=== PATIENT | female | born 1945 | race Caucasian/White ===

== ENCOUNTER → 2021-03-20 | Outpatient (CLI) | payer MEDICARE, OTHER ==
[~2021-03-20] MED LIST: AMOXICILLIN 50500 M1 PO; LISINOPRIL20 MG PO; MECLIZINE HCL25 M1 PO; NORVASC5 MG PO; PROPRANOLOL 20M20 MG PO; PROTONIX40 M2 PO; SYMBICORT160 MCG/4. INH; VALIUM10 MG PO
[2021-03-20 09:39] LABS: ABSOLUTE BASOPHILS 0.1 thou/uL (0.0-0.2); ABSOLUTE EOSINOPHILS 0.2 thou/uL (0.0-0.7); ABSOLUTE LYMPHOCYTES 1.6 thou/uL (0.8-5.3); ABSOLUTE MONOCYTES 0.6 thou/uL (0.0-1.2); ABSOLUTE NEUTROPHILS 4.1 thou/uL (1.6-8.1); BASOPHILS 1.2 %; EOSINOPHILS 3.6 %; HEMATOCRIT 41.9 % (37.0-47.0); LYMPHOCYTES 23.8 %; MCHC 33.5 g/dL (28.0-37.0); MCV 89.5 fL (80.0-100.0); MONOCYTES 8.5 %; MPV 7.4 fl. (7.2-11.1); NUCLEATED RBCS 0 /100WBC; PLATELET COUNT* 244 thou/uL (150-400); POLYS 62.9 %; RBC 4.68 mil/uL (4.20-5.00); WBC 6.5 thou/uL (4.0-11.0)
[2021-03-20 09:49] LABS: INR 0.9; PROTIME 10.1 Seconds (9.20-11.50)
[2021-03-20 10:01] LABS: URINE BILIRUBIN NEGATIVE (Negative); URINE BLOOD NEGATIVE (Negative); URINE CLARITY CLEAR; URINE COLOR YELLOW; URINE GLUCOSE-RANDOM NEGATIVE (Negative); URINE KETONES NEGATIVE (Negative); URINE LEUKOCYTES-REFLEX NEGATIVE (Negative); URINE NITRITE-REFLEX NEGATIVE (Negative); URINE PROTEIN NEGATIVE (Negative); URINE SPECIFIC GRAVITY <= 1.005 (1.005-1.030); URINE UROBILINOGEN 0.2 E.U./dl (0.2-1.0)
[2021-03-20 10:03] LABS: ALBUMIN 4.1 g/dL (3.4-5.0); CALCIUM 8.9 mg/dL (8.5-10.1); CREATININE 0.9 mg/dL (0.6-1.3); POTASSIUM 4.4 mmol/L (3.5-5.1); TOTAL BILIRUBIN 0.6 mg/dL (<0.1-1.0); TOTAL PROTEIN 7.6 g/dL (6.4-8.2)
--- NOTE | 2021-03-20 11:59 | EKG ---
[place] [address] ELECTROCARDIOGRAM REPORT Name: IRAM BARROSO Room: [facility]#: [id number] Admission: 03/20/21 Attend Phys: Torsten Christensen, Discharge: Date of : 41 Date of Service: 03/20/21 1033 Report #: [id number] THIS REPORT FOR: //name// [facility] Test Date: 2021-03-20 Test Time: 10:33:58 Pat Name: IRAM BARROSO Department: Room: Gender: F Examiner Rating Clerk: : 1945 Requested By: Torsten Christensen Order Number: [id number] Victorina MD: Donavan Ryan Measurements Intervals [place] Rate: 52 P: 86 AL: 188 QRS: 66 QRSD: 107 T: 66 QT: 411 QTc: 383 Interpretive Statements Sinus rhythm poor r wave progression Atrial premature complexes Low voltage, extremity and precordial leads No previous ECG available for comparison Electronically Signed On 03-20-2021 11:59:39 CDT by Donavan Ryan [email or web address] <ELECTRONICALLY SIGNED> By: Donavan Ryan MD, [facility] 03/20/21 1159 1033 1033 Donavan Ryan MD, [facility] /EPI
== END ==
LOC: M.LAB 06:49
PROVIDERS: ATTEND Orthopaedic Surgery
DX: Z01.818 Encounter for other preprocedural examination (principal); Z01.812 Encounter for preprocedural laboratory examination; M16.12 Unilateral primary osteoarthritis, left hip

== ENCOUNTER → 2021-03-26 | Day surgery (SDC) | payer MEDICARE, OTHER ==
[~2021-03-26] VITALS: Ht 160 cm; Wt 63.0 kg
[~2021-03-26] MED LIST changes: +ACETAMINOPHEN500 M1 PO; +ALEVE220 M1 PO
--- NOTE | ~2021-03-26 | H ---
[address] [address] HISTORY AND PHYSICAL Name: IRAM BARROSO Room: [address] M.R.#: [id number] Admission: 03/26/21 Attend Phys: Torsten Christensen II Discharge: 03/26/21 Date of : 41 Report #: [id number] THIS REPORT FOR: cc: Des Leo John E. DO [facility],Medical Records Staff ~ Please refer to the History and Physical performed in the physician's office. By: [id number] Records Staff VIRAL /JANETTE
--- NOTE | 2021-03-26 13:41 | NUR ---
Pt discharging to home today. Pt is a total hip, under Dr Christensen. Plan home today with outpt, arranged at a facility off of [address]. Pt worked with PT and did ok, per [facility] at [facility], Pt can have a walker, order on chart, PT to dispense. Dtr in room and will provide transport to and from outpt therapy.
--- NOTE | 2021-03-28 15:14 | OP ---
[address] [address] OPERATIVE REPORT Name: IRAM BARROSO Room: [address] IN .R.#: [id number] Admission: 03/26/21 Attend Phys: Torsten Christensen II Discharge: 03/26/21 Date of : 41 Report #: [id number] THIS REPORT FOR: cc: Des Leo John E. DO Greiner, Robert F. II DO ~ DATE OF SURGERY: 03/26/2021 PREOPERATIVE DIAGNOSIS: Left hip osteoarthritis. POSTOPERATIVE DIAGNOSIS: Left hip osteoarthritis. PROCEDURE: Left total hip arthroplasty. SURGEON: Torsten Christensen II, DO ONLINE MERCHANDISING MANAGER: JASPER Oliveira ANESTHESIA: General endotracheal. ESTIMATED BLOOD LOSS: 200 mL. ANTIBIOTICS: 2 grams Ancef preoperatively. DRAINS: Medium Hemovac. COMPLICATIONS: None. CONDITION: The patient stable to recovery room. IMPLANTS: Biomet total hip arthroplasty listed in chart, to recovery room stable. DESCRIPTION OF PROCEDURE: The patient was taken to the operative suite, placed supine on the operating table, given appropriate anesthesia, the patient's left hip was sterilely prepped and draped in the [place] table leg white and appropriately positioned. Surgery began by anterior incision of the left hip, carried down through the subcutaneous tissues. The tensor fascia was split along its fibers and retracted. An H capsulotomy was then performed and visualized with C-arm showed appropriate neck cutting guide and the head and neck cut was made. The head and neck was removed and attention was turned to the acetabulum. Excess labrum was removed. It was reamed in appropriate fashion, sized appropriate size. The acetabular cup was then malleted into the position and secured with 1 cancellous screw. Appropriate metal liner was then applied and malleted into position. The leg was then rotated and extended in the [place] table and broached in sequential fashion up [place] [address] OPERATIVE REPORT Name: IRAM BARROSO Room: [address] M.R.#: [id number] Admission: 03/26/21 Attend Phys: Torsten Christensen II Discharge: 03/26/21 Date of : 41 Report #: [id number] broach was left in and trialed and showed excellent fit and fill. Excellent stability with appropriate head and neck length. These appropriate head and neck lengths were then utilized in final instruments and these were malleted in appropriate position and once again reduced showing excellent anatomic position, equal leg length to the other side and appropriate fit and fill and stability of the hip through all range of motion. Final irrigation was performed of the wound. The wound was then closed with a 0 Vicryl to the H capsulotomy. Medium Hemovac drain was applied. Pain cocktail was injected. Cautery was utilized as well as Aquamantys to perform appropriate hemostasis. The tensor fascia was then closed in a running fashion with 0 Vicryl and the skin was closed with 2-0 Vicryl and a running Monocryl stitch. Dermabond dressing applied. Drain was activated. The patient was transported to recovery room in stable condition. COUNTS: Correct. <ELECTRONICALLY SIGNED> By: Torsten Christensen II, DO 03/28/21 1514 [id number] [id number] Christensen II, DO /nt
== END | disposition home or self-care (01) ==
LOC: M.ORTHSURG → EDSTATUS 03:44 → M.ORTHSURG 07:34 → M.TBA 07:34 → M.ORTHSURG 09:19 → M.TBA 10:42 → M.SUR 10:42 → M.TBA 10:42 → M.ORTHSURG 11:01 → M.TBA 18:05
PROVIDERS: ATTEND Orthopaedic Surgery
DX: M16.12 Unilateral primary osteoarthritis, left hip (principal); G89.29 Other chronic pain; I10 Essential (primary) hypertension; F41.9 Anxiety disorder, unspecified; F32.9 Major depressive disorder, single episode, unspecified; K21.9 Gastro-esophageal reflux disease without esophagitis; J44.9 Chronic obstructive pulmonary disease, unspecified; Z98.890 Other specified postprocedural states; Z79.899 Other long term (current) drug therapy; Z20.822 Contact with and (suspected) exposure to COVID-19; Z96.641 Presence of right artificial hip joint; Z88.8 Allergy status to other drugs, medicaments and biological substances